=== PATIENT | male | born 1955 | race Hispanic/Latino ===

== ENCOUNTER 2020-05-03 11:32 | Emergency (ER) | payer OTHER ==
[2020-05-03] MEDS ORDERED: SILVER NITRATE APPLICATOR 1 SWAB TP ONE (11:59)
== END 2020-05-03 12:21 | disposition home or self-care (01) ==
LOC: EDH 11:32
DX: S61.012A Laceration without foreign body of left thumb without damage to nail, initial encounter (principal); X58.XXXA Exposure to other specified factors, initial encounter; Y93.89 Activity, other specified; Y92.89 Other specified places as the place of occurrence of the external cause; Y99.8 Other external cause status
CPT/HCPCS: 12001